=== PATIENT | male | born 1950 | race Caucasian/White ===

== ENCOUNTER 2025-01-17 15:26 | Inpatient (IN) ==
[2025-01-17] MEDS: LASIX IVP SCH (16:42)
[2025-01-17] MEDS: ALBUMIN HUMAN 25%- 100 ML 100 ML IV SCH (16:42)
[2025-01-17] MEDS: NS 1,000 ML IV 1,000 ML IV SCH (16:44)
[2025-01-17] MEDS: ASPIRIN 81 MG CHEWTAB PO SCH (16:56)
[2025-01-17] MEDS: ALDACTONE TAB 25 MG PO SCH (16:56)
[2025-01-17] MEDS: ZESTRIL TAB 5 MG PO SCH (16:56)
[2025-01-17 17:12] LABS: MEAN PLATELET VOLUME 7.9 fL (7.4-11.0); RED CELL DISTRIBUTION WIDTH 19.4 % (11.6-16.5)
[2025-01-17 17:20] LABS: CREATININE 2.33 mg/dL (0.70-1.30); eGFR NON BLACK RACES 29.0 (>60)
[2025-01-17 17:32] LABS: PLATELET MORPHOLOGY COMMENT NORMAL (NORMAL)
[2025-01-17 18:04] LABS: COR CA(FOR HYPOALB) 9.7 mg/dL (8.5-10.1); COR NA(FOR HYPERGLY) 131.0 mmol/L (136-145)
--- NOTE | 2025-01-17 18:04 | RAD ---
EXAM: CHEST, PA/LAT ADULT HISTORY: CHF; COMPARISON: September 2024 FINDINGS: Faint interstitial infiltrate seen throughout the lungs. Sternotomy changes. CABG. No pneumothorax or effusion. Mild enlargement The bones are unremarkable. IMPRESSION: 1. Slight interstitial diffuse thickening. Recommend noncontrast CT to evaluate for fibrotic changes THIS IS AN ELECTRONICALLY VERIFIED FINAL REPORT 01/17/2025 6:01 PM - Electronically signed by Svetlana Maciel MD
[2025-01-17] MEDS: LASIX ONE (19:07)
[2025-01-17 19:25] LABS: BLOOD/HEMOGLOBIN,URINE 5+ (NEGATIVE); LEUKOCYTE ESTERASE ,URINE 3+ (NEGATIVE); NITRITES,URINE NEGATIVE (NEGATIVE)
[2025-01-17 19:29] LABS: APPEARANCE,URINE CLOUDY (CLEAR)
[2025-01-17 19:44] LABS: SQUAMOUS EPITHELIAL CELL,UR NEGATIVE /HPF (NEGATIVE); YEAST,URINE MANY /HPF (NEGATIVE)
[2025-01-17 20:09] VITALS: BMI 32.7
[2025-01-17] MEDS ORDERED: K-DUR TAB 20 MEQ PO SCH (21:00)
[2025-01-17] MEDS: KAYEXALATE SUSP PO ONE (21:10)
[2025-01-17] MEDS: GLUCOPHAGE XR 24-HR PO SCH (21:10)
[2025-01-17] MEDS: ARIMIDEX PO SCH (21:10)
[2025-01-17] MEDS: ROCEPHIN VIAL 1 GRAM 1 G in NS 100 ML IV 100 ML IV SCH (21:10)
[2025-01-17] MEDS: COREG TAB 3.125 MG PO SCH (21:10)
[2025-01-17] MEDS: NovoLIN R (or HumuLIN R) SUBCUT PRN (21:16)
[2025-01-17] MEDS: SNACK - Diabetic Appropriate PO SCH (21:18)
[2025-01-18] MEDS: TYLENOL 325 MG TAB PO PRN (00:27)
[2025-01-18 04:59] LABS: MEAN PLATELET VOLUME 8.0 fL (7.4-11.0); RED CELL DISTRIBUTION WIDTH 19.5 % (11.6-16.5)
[2025-01-18 05:22] LABS: COR CA(FOR HYPOALB) 9.3 mg/dL (8.5-10.1); COR NA(FOR HYPERGLY) 130.0 mmol/L (136-145); CREATININE 2.48 mg/dL (0.70-1.30); eGFR NON BLACK RACES 27.0 (>60)
[2025-01-18] MEDS: LOVENOX INJ 30 MG SYR SC SCH (09:01)
[2025-01-18] MEDS: ALBUMIN HUMAN 25%- 100 ML 100 ML IV SCH (09:01)
[2025-01-18] MEDS: FARXIGA PO SCH (09:01)
[2025-01-18] MEDS: LASIX IVP SCH (09:39)
[2025-01-18] MEDS: DEPO-TESTOSTERONE IM SCH (15:08)
[2025-01-18] MEDS: PEPCID TAB 20 MG PO SCH (20:20)
[2025-01-19 04:58] LABS: MEAN PLATELET VOLUME 8.1 fL (7.4-11.0); RED CELL DISTRIBUTION WIDTH 19.5 % (11.6-16.5)
[2025-01-19 05:07] LABS: COR NA(FOR HYPERGLY) 128 mmol/L (136-145); CREATININE 2.44 mg/dL (0.70-1.30); eGFR NON BLACK RACES 28 (>60)
[2025-01-19] MEDS: DIFLUCAN PO SCH (11:07)
--- NOTE | 2025-01-19 14:19 | NOTE.SOAP ---
Soap Note Note for Day of Date of Exam: 01/19/25 Subjective Data Subjective Data: Patient denies any changes overnight. Staff report he is doing well. Heart rate improved overall. Still requiring O2 supplementation. Labs overall stable with elevated creatinine and low sodium. Objective Data Objective Data: Well-developed, well-nourished, elderly male in no acute distress. Sitting up in bed eating breakfast. Lungs diminished with faint crackles bilaterally. Bowel sounds are present. Heart sounds distant but sound regular. 2+ edema of bilateral lower extremities. Assessment Assessment: Acute on chronic systolic CHF exacerbation FABRIZIO Hypotension Mild pulmonary HTN UTI with sepsis (yeast in urine, WBCs, tachycardia) Urinary retention Plan Plan: Continue current. Consider transfer if needed. Grew out yeast in urine culture, starting p.o. fluconazole.
[2025-01-19] MEDS: MILK OF MAGNESIA PO PRN (16:09)
[2025-01-19] MEDS: PEPCID TAB 20 MG ONE (18:44)
[2025-01-20 05:57] LABS: MEAN PLATELET VOLUME 8.4 fL (7.4-11.0); RED CELL DISTRIBUTION WIDTH 19.7 % (11.6-16.5)
[2025-01-20 06:09] LABS: COR NA(FOR HYPERGLY) 129 mmol/L (136-145); CREATININE 2.42 mg/dL (0.70-1.30); eGFR NON BLACK RACES 28 (>60)
[2025-01-20] MEDS: COLACE CAP 100 MG PO PRN (09:53)
--- NOTE | 2025-01-20 10:20 | RAD ---
EXAM: KUB HISTORY: constipation; COMPARISON: Abdomen 12/11/2023, CT abdomen and pelvis 12/21/2023 FINDINGS: Gas is present in nondilated bowel. No bowel obstruction or pneumoperitoneum. There is not an abnormally large amount of stool in the colon. No significant abnormal calcification is present. Minimal degenerative spondylitic changes are present in the spine. Median sternotomy fixation hardware is present. IMPRESSION: 1. No significant abnormality THIS IS AN ELECTRONICALLY VERIFIED FINAL REPORT 01/20/2025 10:17 AM - Electronically signed by Juan Hendrickson MD
--- NOTE | 2025-01-20 17:00 | NOTE.SOAP ---
Soap Note Note for Day of Date of Exam: 01/20/25 Subjective Data Subjective Data: No acute events overnight. Vitals overall stable. Still feels rough but better than yesterday. Swelling still prominent of lower body. Still with hyponatremia on labs, slightly improved leukocytosis, and microcytic anemia. Objective Data Objective Data: Well-developed, well-nourished male in no acute distress. Wearing O2 via nasal cannula. Head NCAT with hearing grossly normal. Heart rate regular with no murmur appreciated. Lungs diminished with crackles but fair air movement. Belly distended with increased tympany. 2+ pitting edema bilateral lower extremities. Assessment Assessment: Acute on chronic systolic CHF exacerbation Distended abdomen, appears to be gas Microcytic anemia UTI with sepsis (present on admission. yeast in urine, WBCs, tachycardia) Plan Plan: Albumin, gentle fluids, diuresis, O2 support, iron iron panel, KUB/simethicone and cleanout..
[2025-01-20] MEDS: AFRIN NASAL SPRAY PRN (17:25)
[2025-01-20] MEDS ORDERED: RESTORIL CAP 15 MG PO PRN (17:45)
[2025-01-20] MEDS: PEPCID TAB 20 MG PO SCH (21:33)
[2025-01-20] MEDS: AMBIEN PO PRN (21:33)
[2025-01-21 05:08] LABS: MEAN PLATELET VOLUME 8.4 fL (7.4-11.0); RED CELL DISTRIBUTION WIDTH 19.1 % (11.6-16.5)
[2025-01-21 05:17] LABS: COR NA(FOR HYPERGLY) 132 mmol/L (136-145); CREATININE 2.23 mg/dL (0.70-1.30); eGFR NON BLACK RACES 31 (>60)
[2025-01-21] MEDS: FERROUS GLUCONATE PO SCH (12:00)
--- NOTE | 2025-01-21 12:32 | NOTE.SOAP ---
Soap Note Note for Day of Date of Exam: 01/21/25 Subjective Data Subjective Data: Slept better last night. Volume (-). Breathing/talking easier. Legs and abdomen less swollen. Good BM yesterday. Iron low. SCr and WBCs improved. K+ up. Objective Data Objective Data: NAD. Wearing NC. Talking better. Legs 2+ nonpitting today. Abdomen soft and non- distended. Lungs clear with good aeration. RRR. Assessment Assessment: Acute on chronic systolic CHF exacerbation Iron deficiency anemia Hypotension FABRIZIO Hyperkalemia Hyponatremia Sepsis due to fungal UTI Plan Plan: Add oral iron, continue GI clean out, continue gentle diuresis. No other changes.
[2025-01-21] MEDS: MAALOX or MYLANTA PO PRN (17:20)
[2025-01-21] MEDS: COLACE CAP 100 MG PO SCH (21:37)
[2025-01-21] MEDS: PEPCID 20 MG VIAL 20 MG in NS 50 ML IV 50 ML IV SCH (21:38)
[2025-01-22 05:24] LABS: MEAN PLATELET VOLUME 8.5 fL (7.4-11.0); RED CELL DISTRIBUTION WIDTH 19.3 % (11.6-16.5)
[2025-01-22 05:26] LABS: COR NA(FOR HYPERGLY) 131 mmol/L (136-145); CREATININE 2.13 mg/dL (0.70-1.30); eGFR NON BLACK RACES 33 (>60)
[2025-01-22 05:39] LABS: PLATELET MORPHOLOGY COMMENT NORMAL (NORMAL)
--- NOTE | 2025-01-22 08:01 | NOTE.SOAP ---
Soap Note Note for Day of Date of Exam: 01/22/25 Subjective Data Subjective Data: SCR improving. BP stable. Anemia stable. Ambulating to bathroom. No worsening dyspnea. Edema improve. Negative UOP. WBCs up. Objective Data Objective Data: Well-developed, well-nourished male in no acute distress. Wearing his nasal cannula. Speech and breathing continuously improved. Lungs clear today with good air movement. Heart regular rate and rhythm. Edema and now pitting but less tense in the legs overall. Able to move all extremities well. Belly remains soft with bowel sounds present. Assessment Assessment: Acute on chronic systolic CHF JOSE ELIAS FABRIZIO Sepsis due to fungal UTI Plan Plan: Monitor labs and vitals. Continue antifungal. Continue PO iron. Albumin and Lasix today.
[2025-01-22] MEDS: AYR NASAL DROPS PRN (09:01)
[2025-01-23 04:52] LABS: MEAN PLATELET VOLUME 8.5 fL (7.4-11.0); RED CELL DISTRIBUTION WIDTH 19.3 % (11.6-16.5)
[2025-01-23 05:04] LABS: COR NA(FOR HYPERGLY) 133 mmol/L (136-145); CREATININE 1.89 mg/dL (0.70-1.30); eGFR NON BLACK RACES 37 (>60)
--- NOTE | 2025-01-23 10:04 | NOTE.SOAP ---
Soap Note Note for Day of Date of Exam: 01/23/25 Subjective Data Subjective Data: Weight slightly up today. Slightly positive fluid balance this morning. Stable anemia. Mild elevation in WBCs that is stable. Leg edema continues to improve but scrotal edema still massive. Ambulating and breathing better overall other than the scrotal/penile discomfort. Objective Data Objective Data: Elderly male in no acute distress. Eating breakfast. Hearing intact conversation. Head NCAT. Heart regular rate and rhythm. Lungs clear with strong, unlabored speech. 2+ pitting edema of the lower extremities with out tightness. Large scrotal edema. Nichols still with output. Assessment Assessment: Acute on chronic systolic CHF exacerbation JOSE ELIAS Scrotal edema due to above FABRIZIO Plan Plan: Serum creatinine continues to improve. Continue albumin and Lasix. Try up any techniques to help with the scrotal edema. Recheck weight. Strict I's and O's. Continue Nichols due to penile/scrotal edema. Patient not yet stable to go home due to the discomfort while ambulating but would be eligible to go to [facility].
[2025-01-24 06:14] LABS: MEAN PLATELET VOLUME 8.3 fL (7.4-11.0); RED CELL DISTRIBUTION WIDTH 19.3 % (11.6-16.5)
[2025-01-24 06:51] LABS: COR NA(FOR HYPERGLY) 133 mmol/L (136-145); CREATININE 1.91 mg/dL (0.70-1.30); eGFR NON BLACK RACES 37 (>60)
[2025-01-24] MEDS: NYSTATIN POWDER TOP SCH (08:14)
[2025-01-24] MEDS: LASIX IVP SCH (08:15)
[2025-01-24] MEDS: COREG TAB 6.25 MG PO SCH (08:20)
--- NOTE | 2025-01-24 10:57 | NOTE.SOAP ---
Soap Note Note for Day of Date of Exam: 01/24/25 Subjective Data Subjective Data: Weight up yesterday and today. Scrotal edema still massive. Ambulation difficult due to the tenderness. Leg still edematous but daily improvement. Urine output still pretty good. Appetite good. Shortness of breath resolved. Objective Data Objective Data: Well-developed male in no acute distress. Hearing intact conversation. Heart regular rate and rhythm. Lungs clear bilaterally. Belly soft and nontender with the bowel sounds present. Leg still 2+ pitting edema but not tense or weeping. Scrotum still swollen. Assessment Assessment: Acute on chronic systolic CHF exacerbation , slowly resolving JOSE ELIAS, stable Scrotal edema due to above, unchanged FABRIZIO, improving Plan Plan: Increase Lasix to 40 mg 3 times daily IV for today and tomorrow. Continue current. Patient is stable for discharge other than his difficulty ambulating due to the scrotal edema. Dry weight is between 190-195 pounds. Still 20 pounds away.
[2025-01-25 05:17] LABS: MEAN PLATELET VOLUME 8.5 fL (7.4-11.0)
[2025-01-25 05:24] LABS: RED CELL DISTRIBUTION WIDTH 19.1 % (11.6-16.5)
[2025-01-25 05:37] LABS: COR NA(FOR HYPERGLY) 134 mmol/L (136-145); CREATININE 2.05 mg/dL (0.70-1.30); eGFR NON BLACK RACES 34 (>60)
[2025-01-25] MEDS ORDERED: LEVSIN/MAALOX/LIDOC VISC PO PRN (09:42)
[2025-01-25] MEDS: CITROMA PO ONE (09:53)
[2025-01-25] MEDS: DIFLUCAN PO NR (09:54)
[2025-01-25] MEDS: ZAROXOLYN PO SCH (09:54)
[2025-01-25] MEDS: PLAVIX PO SCH (09:54)
[2025-01-25] MEDS: RHINOCORT ALLERGY NASAL SPRAY ENOSTRIL SCH (09:54)
[2025-01-25] MEDS: PEPCID 20 MG VIAL 20 MG in NS 50 ML IV 50 ML IV SCH (10:03)
[2025-01-26 06:48] LABS: MEAN PLATELET VOLUME 8.3 fL (7.4-11.0); RED CELL DISTRIBUTION WIDTH 20.0 % (11.6-16.5)
[2025-01-26 06:50] LABS: COR NA(FOR HYPERGLY) 134 mmol/L (136-145); CREATININE 2.37 mg/dL (0.70-1.30); eGFR NON BLACK RACES 29 (>60)
[2025-01-26] MEDS: DIFLUCAN PO SCH (08:56)
[2025-01-26] MEDS: PROSCAR PO SCH (09:55)
[2025-01-27 06:22] LABS: MEAN PLATELET VOLUME 8.3 fL (7.4-11.0); RED CELL DISTRIBUTION WIDTH 19.8 % (11.6-16.5)
[2025-01-27 06:39] LABS: COR NA(FOR HYPERGLY) 133 mmol/L (136-145); CREATININE 2.16 mg/dL (0.70-1.30); eGFR NON BLACK RACES 32 (>60)
[2025-01-27] MEDS: ALBUMIN HUMAN 25%- 100 ML 100 ML IV SCH (09:15)
[2025-01-28 05:07] LABS: MEAN PLATELET VOLUME 8.2 fL (7.4-11.0); RED CELL DISTRIBUTION WIDTH 19.8 % (11.6-16.5)
[2025-01-28 05:13] LABS: COR NA(FOR HYPERGLY) 132 mmol/L (136-145); CREATININE 2.05 mg/dL (0.70-1.30); eGFR NON BLACK RACES 34 (>60)
--- NOTE | 2025-01-28 10:49 | PCM.PROG ---
Progress Note Progress Note for Day of Date of Exam: 01/28/25 Subjective Subjective: Patient is a 74-year-old male admitted for CHF exacerbation. This morning he is resting comfortably in bed. No acute events overnight. He did have his Nichols removed. Labs/imaging: WBC 11.8, hemoglobin 11.9, platelets 191, sodium 132, potassium 4.1, creatinine 2.05, glucose 139. Patient does have urinary output of -380 cc. Patient gradually improving. Otherwise continue with diuretics. Continue with current treatment plan and medications. Closely monitor and follow-up labs/imaging. Past Medical Family Social History Past Med/Fam/Surg Hx: No changes since H&P Allergies: Allergies No Known Drug Allergies (NKDA) Allergy (Unknown, Verified 01/17/25 18:29) Review of Systems ROS changes noted: see HPI Vital Signs and I&O's Vital Signs: Vital Signs Temperature 97.1 F Temperature 97.4 F Pulse Rate [Brachial] 94 Pulse Rate [Brachial] 87 Respiratory Rate 17 Respiratory Rate 24 Blood Pressure [Right Arm] 110/70 Blood Pressure [Right Arm] 88/54 Blood Pressure [Right Arm] 102/61 O2 Sat by Pulse Oximetry 100 O2 Sat by Pulse Oximetry 100 Intake and Output: Intake & Output 01/25/25 01/26/25 01/27/25 01/28/25 23:59 23:59 23:59 23:59 Intake Total 1111 / 1111 1270 / 1270 1717 / 1717 432 / 432 Output Total 2220 / 2260 3034 / 3134 2287 / 2367 640 / 640 Balance -1109 / -1149 -1764 / -1864 -570 / -650 -208 / -208 Physical Exam Oriented: Normal Eyes: Normal Ear: Normal Nose: Normal Respiratory: Diminished Cardiovascular: Normal : Normal Auscultation: Bowel Sounds: Normal Palpation: Normal Tenderness: Normal Skin: Normal Speech Pattern: Clear and Appropriate Laboratory and Diagnostics 01/28/25 04:30 01/28/25 04:30 Labs: 01/17/25 19:12 Urine,Catheterized Urine Culture - Final [facility] WBC 11.8 X10^3/uL (3.6-10.0) H 01/28/25 04:30 RBC 4.95 X10^6/uL (4.7-6.0) 01/28/25 04:30 Hgb 11.9 g/dL (13.5-18.0) L 01/28/25 04:30 Hct 38.0 % (42.0-54.0) L 01/28/25 04:30 MCV 76.8 fL (80.0-100.0) L 01/28/25 04:30 MCH 24.1 pg (27.0-34.0) L 01/28/25 04:30 MCHC 31.4 g/dL (33.0-35.0) L 01/28/25 04:30 RDW 19.8 % (11.6-16.5) H 01/28/25 04:30 Plt Count 191 X10^3/uL (150.0-450.0) 01/28/25 04:30 Plt Count Comment Adequate (ADEQUATE) 01/22/25 04:13 MPV 8.2 fL (7.4-11.0) 01/28/25 04:30 Neut % (Auto) 77.6 % (42.0-75.0) H 01/28/25 04:30 Lymph % (Auto) 15.1 % (21.0-51.0) L 01/28/25 04:30 [place] % (Auto) 5.3 % (0.0-13.0) 01/28/25 04:30 Eos % (Auto) 1.0 % (0.9-2.9) 01/28/25 04:30 Baso % (Auto) 1.0 % (0.2-1.0) 01/28/25 04:30 Neut # (Auto) 9.2 x10^3/uL (2.2-4.8) H 01/28/25 04:30 Lymph # (Auto) 1.8 X10^3/uL (1.3-2.9) 01/28/25 04:30 [place] # (Auto) 0.6 x10^3/uL (0.3-0.8) 01/28/25 04:30 Eos # (Auto) 0.1 x10^3/uL (0.0-0.2) 01/28/25 04:30 Baso # (Auto) 0.1 X10^3/uL (0.0-0.1) 01/28/25 04:30 Absolute Nucleated RBC 0.1 /100WBC 01/28/25 04:30 Total Counted 100 01/22/25 04:13 Neutrophils % (Manual) 77 % (39-76) H 01/22/25 04:13 Lymphocytes % (Manual) 18 % (13-43) 01/22/25 04:13 Monocytes % (Manual) 5 % (4-9) 01/22/25 04:13 Eosinophils % (Manual) 6 % (0-6) 01/17/25 16:37 Plt Morphology Comment Normal (NORMAL) 01/22/25 04:13 RBC Morphology Abnormal (NORMAL) 01/22/25 04:13 Dimorphic RBCs Slight 01/17/25 16:37 Hypochromasia Slight A 01/22/25 04:13 Poikilocytosis Slight A 01/17/25 16:37 Anisocytosis Slight A 01/22/25 04:13 Microcytosis Slight A 01/22/25 04:13 Sodium 131 mmol/L (136-145) L 01/28/25 04:30 Corrected Sodium 132 mmol/L (136-145) L 01/28/25 04:30 Potassium 4.1 mmol/L (3.5-5.1) 01/28/25 04:30 Chloride 96 mmol/L (98-107) L 01/28/25 04:30 Carbon Dioxide 23.9 mmol/L (21-32) 01/28/25 04:30 BUN 81 mg/dL (7-18) H 01/28/25 04:30 Creatinine 2.05 mg/dL (0.70-1.30) H 01/28/25 04:30 Est GFR (MDRD) Af Amer 41 (>60) L 01/28/25 04:30 Est GFR (MDRD) Non-Af 34 (>60) L 01/28/25 04:30 Glucose 139 mg/dL (65-99) H 01/28/25 04:30 POC Glucose (mg/dL) 114 mg/dL (65-99) H 01/28/25 05:04 Calcium 8.5 mg/dL (8.5-10.1) 01/28/25 04:30 Corrected Calcium TNP 01/28/25 04:30 Magnesium 2.9 mg/dL (2.0-2.9) 01/25/25 04:38 Iron 29 ug/dL (50-175) L 01/20/25 05:17 Total Bilirubin 0.50 mg/dL (0.2-1.0) 01/28/25 04:30 AST 15 Units/L (15-37) 01/28/25 04:30 ALT 39 Units/L (12-78) 01/28/25 04:30 Alkaline Phosphatase 78 Units/L (46-116) 01/28/25 04:30 Troponin I High Sens 184.8 ng/L (4.0-60.0) H* 01/18/25 04:14 Total Protein 6.6 g/dL (6.4-8.2) 01/28/25 04:30 Albumin 3.7 g/dL (3.4-5.0) 01/28/25 04:30 Globulin 2.9 g/dL (2.5-4.5) 01/28/25 04:30 Albumin/Globulin Ratio 1.3 Ratio (1.1-2.1) 01/28/25 04:30 Vitamin B12 > 2000 pg/mL (193-986) H 01/20/25 05:17 Folate 15.9 ng/mL (>8.6) 01/20/25 05:17 Specimen Type Catherized urine 01/17/25 19:12 Urine Color Yellow (YELLOW) 01/17/25 19:12 Urine Appearance Cloudy (CLEAR) 01/17/25 19:12 Urine pH 5.0 (5.0 - 8.0) 01/17/25 19:12 Ur Specific [place] 1.020 (1.000-1.030) 01/17/25 19:12 Urine Protein 2+ (NEGATIVE) 01/17/25 19:12 Urine Glucose (UA) 4+ (NEGATIVE) 01/17/25 19:12 Urine Ketones Negative (NEGATIVE) 01/17/25 19:12 Urine Blood 5+ (NEGATIVE) 01/17/25 19:12 Urine Nitrite Negative (NEGATIVE) 01/17/25 19:12 Urine Bilirubin Negative (NEGATIVE) 01/17/25 19:12 Urine Urobilinogen Normal (NORMAL) 01/17/25 19:12 Ur Leukocyte Esterase 3+ (NEGATIVE) 01/17/25 19:12 Urine RBC 10-20 /HPF (0-3) A 01/17/25 19:12 Urine WBC Tntc /HPF (0-5) A 01/17/25 19:12 Ur Squamous Epith Cells Negative /HPF (NEGATIVE) 01/17/25 19:12 Urine Bacteria 1+ /HPF (NEGATIVE) 01/17/25 19:12 Urine Yeast Many /HPF (NEGATIVE) 01/17/25 19:12 Ur Culture Indicated? Yes/culture set up 01/17/25 19:12 Infect Dis PCR Plus See scanned report 01/25/25 10:00 Plan (1) CHF exacerbation: Status: Acute Qualifiers: Heart failure type: unspecified Qualified Code(s): I50.9 - Heart failure, unspecified
[2025-01-29 04:49] LABS: MEAN PLATELET VOLUME 8.2 fL (7.4-11.0); RED CELL DISTRIBUTION WIDTH 19.8 % (11.6-16.5)
[2025-01-29 05:03] LABS: COR NA(FOR HYPERGLY) 128 mmol/L (136-145); CREATININE 2.00 mg/dL (0.70-1.30); eGFR NON BLACK RACES 35 (>60)
--- NOTE | 2025-01-29 09:31 | PCM.PROG ---
Progress Note Progress Note for Day of Date of Exam: 01/29/25 Subjective Subjective: Patient is a 74-year-old male admitted for CHF exacerbation. He was examined this morning at bedside. No acute events overnight. He did have his Nichols removed and is urinating without problem. Labs/imaging: WBC 9.5, hemoglobin 11.8, platelets 185, sodium 128, potassium 4.0, creatinine 2.00, glucose 143. Patient gradually improving. Otherwise continue with diuretics. He did not eat much yesterday, encouraged him to eat well today as we will monitor his sodium level. Continue with current treatment plan and medications. Closely monitor and follow-up labs/imaging. Past Medical Family Social History Past Med/Fam/Surg Hx: No changes since H&P Allergies: Allergies No Known Drug Allergies (NKDA) Allergy (Unknown, Verified 01/17/25 18:29) Review of Systems ROS changes noted: see HPI Vital Signs and I&O's Vital Signs: Vital Signs Temperature 97.4 F Temperature 98.0 F Pulse Rate [Brachial] 94 Pulse Rate [Brachial] 67 Respiratory Rate 18 Respiratory Rate 20 Blood Pressure [Right Arm] 95/85 Blood Pressure [Right Arm] 106/73 O2 Sat by Pulse Oximetry 97 O2 Sat by Pulse Oximetry 95 Intake and Output: Intake & Output 01/26/25 01/27/25 01/28/25 01/29/25 23:59 23:59 23:59 22:59 Intake Total 1270 / 1270 1717 / 1717 2311 / 2311 721 / 721 Output Total 3034 / 3134 2287 / 2367 640 / 640 1200 / 1200 Balance -1764 / -1864 -570 / -650 1671 / 1671 -479 / -479 Physical Exam Oriented: Normal Eyes: Normal Ear: Normal Nose: Normal Respiratory: Diminished Cardiovascular: Normal : Normal Auscultation: Bowel Sounds: Normal Tenderness: Normal Skin: Normal Speech Pattern: Clear and Appropriate Laboratory and Diagnostics 01/29/25 04:39 01/29/25 04:39 Labs: 01/17/25 19:12 Urine,Catheterized Urine Culture - Final [facility] WBC 9.5 X10^3/uL (3.6-10.0) 01/29/25 04:39 RBC 4.81 X10^6/uL (4.7-6.0) 01/29/25 04:39 Hgb 11.8 g/dL (13.5-18.0) L 01/29/25 04:39 Hct 36.9 % (42.0-54.0) L 01/29/25 04:39 MCV 76.8 fL (80.0-100.0) L 01/29/25 04:39 MCH 24.6 pg (27.0-34.0) L 01/29/25 04:39 MCHC 32.1 g/dL (33.0-35.0) L 01/29/25 04:39 RDW 19.8 % (11.6-16.5) H 01/29/25 04:39 Plt Count 185 X10^3/uL (150.0-450.0) 01/29/25 04:39 Plt Count Comment Adequate (ADEQUATE) 01/22/25 04:13 MPV 8.2 fL (7.4-11.0) 01/29/25 04:39 Neut % (Auto) 73.8 % (42.0-75.0) 01/29/25 04:39 Lymph % (Auto) 17.1 % (21.0-51.0) L 01/29/25 04:39 [place] % (Auto) 6.4 % (0.0-13.0) 01/29/25 04:39 Eos % (Auto) 1.9 % (0.9-2.9) 01/29/25 04:39 Baso % (Auto) 0.8 % (0.2-1.0) 01/29/25 04:39 Neut # (Auto) 7.0 x10^3/uL (2.2-4.8) H 01/29/25 04:39 Lymph # (Auto) 1.6 X10^3/uL (1.3-2.9) 01/29/25 04:39 [place] # (Auto) 0.6 x10^3/uL (0.3-0.8) 01/29/25 04:39 Eos # (Auto) 0.2 x10^3/uL (0.0-0.2) 01/29/25 04:39 Baso # (Auto) 0.1 X10^3/uL (0.0-0.1) 01/29/25 04:39 Absolute Nucleated RBC 0.1 /100WBC 01/29/25 04:39 Total Counted 100 01/22/25 04:13 Neutrophils % (Manual) 77 % (39-76) H 01/22/25 04:13 Lymphocytes % (Manual) 18 % (13-43) 01/22/25 04:13 Monocytes % (Manual) 5 % (4-9) 01/22/25 04:13 Eosinophils % (Manual) 6 % (0-6) 01/17/25 16:37 Plt Morphology Comment Normal (NORMAL) 01/22/25 04:13 RBC Morphology Abnormal (NORMAL) 01/22/25 04:13 Dimorphic RBCs Slight 01/17/25 16:37 Hypochromasia Slight A 01/22/25 04:13 Poikilocytosis Slight A 01/17/25 16:37 Anisocytosis Slight A 01/22/25 04:13 Microcytosis Slight A 01/22/25 04:13 Sodium 127 mmol/L (136-145) L 01/29/25 04:39 Corrected Sodium 128 mmol/L (136-145) L 01/29/25 04:39 Potassium 4.0 mmol/L (3.5-5.1) 01/29/25 04:39 Chloride 93 mmol/L (98-107) L 01/29/25 04:39 Carbon Dioxide 26.7 mmol/L (21-32) 01/29/25 04:39 BUN 77 mg/dL (7-18) H 01/29/25 04:39 Creatinine 2.00 mg/dL (0.70-1.30) H 01/29/25 04:39 Est GFR (MDRD) Af Amer 42 (>60) L 01/29/25 04:39 Est GFR (MDRD) Non-Af 35 (>60) L 01/29/25 04:39 Glucose 143 mg/dL (65-99) H 01/29/25 04:39 POC Glucose (mg/dL) 137 mg/dL (65-99) H 01/29/25 05:00 Calcium 8.4 mg/dL (8.5-10.1) L 01/29/25 04:39 Corrected Calcium TNP 01/29/25 04:39 Magnesium 2.9 mg/dL (2.0-2.9) 01/25/25 04:38 Iron 29 ug/dL (50-175) L 01/20/25 05:17 Total Bilirubin 0.50 mg/dL (0.2-1.0) 01/29/25 04:39 AST 18 Units/L (15-37) 01/29/25 04:39 ALT 36 Units/L (12-78) 01/29/25 04:39 Alkaline Phosphatase 73 Units/L (46-116) 01/29/25 04:39 Troponin I High Sens 184.8 ng/L (4.0-60.0) H* 01/18/25 04:14 Total Protein 6.7 g/dL (6.4-8.2) 01/29/25 04:39 Albumin 3.8 g/dL (3.4-5.0) 01/29/25 04:39 Globulin 2.9 g/dL (2.5-4.5) 01/29/25 04:39 Albumin/Globulin Ratio 1.3 Ratio (1.1-2.1) 01/29/25 04:39 Vitamin B12 > 2000 pg/mL (193-986) H 01/20/25 05:17 Folate 15.9 ng/mL (>8.6) 01/20/25 05:17 Specimen Type Catherized urine 01/17/25 19:12 Urine Color Yellow (YELLOW) 01/17/25 19:12 Urine Appearance Cloudy (CLEAR) 01/17/25 19:12 Urine pH 5.0 (5.0 - 8.0) 01/17/25 19:12 Ur Specific [place] 1.020 (1.000-1.030) 01/17/25 19:12 Urine Protein 2+ (NEGATIVE) 01/17/25 19:12 Urine Glucose (UA) 4+ (NEGATIVE) 01/17/25 19:12 Urine Ketones Negative (NEGATIVE) 01/17/25 19:12 Urine Blood 5+ (NEGATIVE) 01/17/25 19:12 Urine Nitrite Negative (NEGATIVE) 01/17/25 19:12 Urine Bilirubin Negative (NEGATIVE) 01/17/25 19:12 Urine Urobilinogen Normal (NORMAL) 01/17/25 19:12 Ur Leukocyte Esterase 3+ (NEGATIVE) 01/17/25 19:12 Urine RBC 10-20 /HPF (0-3) A 01/17/25 19:12 Urine WBC Tntc /HPF (0-5) A 01/17/25 19:12 Ur Squamous Epith Cells Negative /HPF (NEGATIVE) 01/17/25 19:12 Urine Bacteria 1+ /HPF (NEGATIVE) 01/17/25 19:12 Urine Yeast Many /HPF (NEGATIVE) 01/17/25 19:12 Ur Culture Indicated? Yes/culture set up 01/17/25 19:12 Infect Dis PCR Plus See scanned report 01/25/25 10:00 Plan (1) CHF exacerbation: Status: Acute Qualifiers: Heart failure type: unspecified Qualified Code(s): I50.9 - Heart failure, unspecified
[2025-01-30 04:59] LABS: MEAN PLATELET VOLUME 8.4 fL (7.4-11.0); RED CELL DISTRIBUTION WIDTH 19.6 % (11.6-16.5)
[2025-01-30 05:04] LABS: CREATININE 2.10 mg/dL (0.70-1.30); eGFR NON BLACK RACES 33 (>60)
[2025-01-30] MEDS: PEPCID 20 MG VIAL 20 MG in NS 50 ML IV 50 ML IV SCH (08:07)
[2025-01-30] MEDS: FLOMAX PO SCH (09:45)
[2025-01-30] MEDS: BUMEX INJ 1 MG VIAL IVP SCH (20:28)
[2025-01-31 04:59] LABS: MEAN PLATELET VOLUME 8.2 fL (7.4-11.0); RED CELL DISTRIBUTION WIDTH 19.9 % (11.6-16.5)
[2025-01-31 05:08] LABS: COR NA(FOR HYPERGLY) 136 mmol/L (136-145); CREATININE 2.23 mg/dL (0.70-1.30); eGFR NON BLACK RACES 31 (>60)
[2025-01-31] MEDS: VORICONAZOLE 400 MG in NS 100 ML IV 100 ML IV SCH ×2 (09:11→10:15)
[2025-01-31] MEDS: VORICONAZOLE 200 MG in NS 50 ML IV 50 ML IV SCH (10:00)
[2025-01-31] MEDS: BUMEX INJ 1 MG VIAL IVP SCH (10:11)
[2025-01-31 19:46] VITALS: RESP 17
[2025-02-01 04:57] LABS: MEAN PLATELET VOLUME 7.8 fL (7.4-11.0); RED CELL DISTRIBUTION WIDTH 19.9 % (11.6-16.5)
[2025-02-01 05:07] LABS: COR NA(FOR HYPERGLY) 136 mmol/L (136-145); CREATININE 2.09 mg/dL (0.70-1.30); eGFR NON BLACK RACES 33 (>60)
[2025-02-01] MEDS ORDERED: CONSULT PHARMACY - POTASSIUM & MAGNESIUM XX SCH (08:00)
[2025-02-01] MEDS: K-DUR TAB 20 MEQ PO SCH (09:32)
[2025-02-01 09:55] VITALS: BP 91/51; PULSE 90; TEMP 97.3; O2SAT 98
== END 2025-02-01 09:59 | disposition swing bed (61) | DRG 292 ==
LOC: ICU → OBSVTOIN 15:36 → MED/SURG 01-19 15:57
PROVIDERS: ADMIT Obstetrics & Gynecology Obstetrics; ATTEND Obstetrics & Gynecology Obstetrics
DX: I95.89 Other hypotension; N17.8 Other acute kidney failure; D50.8 Other iron deficiency anemias; N40.1 Benign prostatic hyperplasia with lower urinary tract symptoms; I50.23 Acute on chronic systolic (congestive) heart failure; Z59.89 Other problems related to housing and economic circumstances; N50.89 Other specified disorders of the male genital organs; R79.89 Other specified abnormal findings of blood chemistry; R91.8 Other nonspecific abnormal finding of lung field; K59.09 Other constipation; B37.89 Other sites of candidiasis; R53.1 Weakness; R94.4 Abnormal results of kidney function studies; R06.02 Shortness of breath; E87.5 Hyperkalemia; Z66 Do not resuscitate; R60.0 Localized edema; E87.1 Hypo-osmolality and hyponatremia; N39.0 Urinary tract infection, site not specified; D72.828 Other elevated white blood cell count; E11.65 Type 2 diabetes mellitus with hyperglycemia; R26.89 Other abnormalities of gait and mobility; L89.152 Pressure ulcer of sacral region, stage 2

== ENCOUNTER 2025-02-01 10:00 | Inpatient (IN) ==
[2025-02-01] MEDS ORDERED: LEVSIN/MAALOX/LIDOC VISC PO PRN (10:45)
[2025-02-01] MEDS ORDERED: MAALOX or MYLANTA PO PRN (10:45)
[2025-02-01] MEDS ORDERED: AYR NASAL DROPS PRN (10:45)
[2025-02-01] MEDS ORDERED: AMBIEN PO PRN (10:45)
--- NOTE | 2025-02-01 13:27 | PT/OTEVAL ---
PT/OT OBJECTIVES - HISTORY Prescription: PT Consult Diagnosis: Deconditioning due to CHF Precautions: Fall Risk PMH: HTN, Arthritis, DM, CVA, CAD, Bypass Surgery (~1.5 months ago), Foot Sx Prior Level of Function: Independent Other: Per patient report- he resides alone with 2 dogs in a 5th wheel camper with 3 steps to enter with LHR (reports steps are "denise and broken down" and that he was going to replace them but was hospitalized). PLOF: Independent within home and community without a device but does report having a FWW he recently weaned off of after open heart surgery. Pt reports a neighbor is currently helping take care of his dogs but no family support. History of Present Illness: Mr. Redmond is a 74 year old male who was a direct admit to [facility] on 01/17/2025 due to CHF exacerbation and hyperkalemia with severe swelling. Pt with recent history of bypass surgery as well. Pt was treated medically and due to complicated medical status was noted with a significant decline in strength and mobility and inability to safely return home. Pt was transitioned to swing bed program for rehab on 02/01/2025. - COGNITION Mental Status: Alert, Oriented, Name, Date, Place, Purpose Communication Status: Verbal Ability to Follow Directions: 2 Step Memory Loss: None - PAIN Scrotal Area Pain Scale: Moderate Comments: With movement. No pain at rest. - BED MOBILITY Rolling: Minimal Scooting: Maximum, x2 - TRANSFERS Supine to Sit: Moderate, Maximum Sit to Stand: Maximum Sit or Stand Pivot: Maximum Safety (requires cues for:): Hand Placement Precaution - BALANCE Static Sitting: Good Standing: Fair Balance Comment: Fair- Dynamic Sitting: Fair Standing: Poor Balance Comment: Poor+ - NEUROMOTOR/SENSATION Alexis. Lower Ext Sensation: WFL Coordination: WFL Proprioception: WFL - ROM Bilateral LE ROM: WFL Muscle Tone: WFL Comment: BLE swelling noted - STRENGTH Bilateral LE Strength Number: 3 - GAIT Pt. ambulates how many feet?: 20 Amount of Assistance Required: Minimal Type of Assistive Device: Rolling Walker - TREATMENT Date: 02/01/25 Time: 11:00 Treatment Type: Evaluation Treatment Provided: Gait, Therapeutic Activities - TOTAL TREATMENT TIME Total Time: 60 - POST ASSESSMENT Post Assessment Comment: Pt was found supine in bed in room and agreeable to participation in PT services. Pt reports that he is still in pain due to swelling with movement but is starting to feel some better. Pt able to roll in bed with min assist. Pt mod assist to transition from sidelying to sitting EOB. Pt mod assist to position at EOB for comfort. Pt required max assist for sit to stand transfers from EOB requiring wide TALON due to swelling. Pt with standing tolerance of 4 minutes this date. Pt performed gait training in room with FWW and mod assist for 20ft with 1 standing rest break before fatigue and requiring therapeutic rest break. Pt on O2 throughout with focus on deep breathing techiques. Pt requesting to return to bed following session stating that chair is just too uncomfortable due to his swelling. Pt assisted back to supine position with max assist and required max assist x 2 to scoot up in bed for positioning. Pt positioned for comfort. Discussion with pt re: PT POC and goals with pt reporting wanting to get his independence back to return home safely. Pt would benefit from continued PT services to address remaining deficits and facilitate highest level of function and safe discharge planning. - EXIT DISPOSITION Exit Position: BED Call light in reach: Yes Bed Alarm On: YES PT/OT ASSESSMENT - PT Problem List: Decreased Bed Mobility, Decreased Transfers, Decreased Gait, Decreased Balance, Decreased LE Strength - PT GOALS Short Term Goals Days: 10 Mobility: Pt will perform bed mobility tasks with min assist Transfers: Pt will perform functional transfers with min assist Gait: Pt will ambulate 75ft with FWW with touch assist Balance: Pt will increase static standing balance to fair+/good- Hospital Superintendent Goals Days: 20 Mobility: Pt will perform bed mobility tasks with mod I Transfers: Pt will perform functional transfers with mod I Gait: Pt will ambulate 150ft with LRAD and mod I Balance: Pt will increase static standing balance to good ROM/Strength: Pt will increase BLE strength to 5/5 Others: Pt will ascend/descend 3 stairs with LHR and mo dI - PATIENT GOALS Patient/Family Goals: "I want to get my strength back and go home" Goals Discussed with Patient/Family: Yes Rehabilitation Potential: Good to meet stated goals Justification for Potential: Facilitate highest level of function and safe discharge planning - PLAN Suggested Treatment Plan: Bed Mobility Training, Therapeutic Activity, Gait Training, Neuro Re-education, Therapeutic Ex with HEP, Patient Education, Family Education - FREQUENCY AND DURATION PT: 5x per week x 20 days Expected Continuation of Care at Discharge: Home Health Anticipated Equipment Needs: TBD pending progress with therapy
[2025-02-01] MEDS: DEPO-TESTOSTERONE IM SCH (13:35)
[2025-02-01] MEDS: NS 1,000 ML IV 1,000 ML IV SCH (17:16)
[2025-02-01 18:43] VITALS: BMI 36.3
[2025-02-01] MEDS: ROCEPHIN VIAL 1 GRAM 1 G in NS 100 ML IV 100 ML IV SCH (21:52)
[2025-02-01] MEDS: NYSTATIN POWDER TOP SCH (21:53)
[2025-02-01] MEDS: K-DUR TAB 20 MEQ PO SCH (21:54)
[2025-02-01] MEDS: ARIMIDEX PO SCH (21:54)
[2025-02-01] MEDS: COREG TAB 6.25 MG PO SCH (21:54)
[2025-02-01] MEDS: BUMEX INJ 1 MG VIAL IVP SCH (21:54)
[2025-02-01] MEDS: VORICONAZOLE 200 MG in NS 50 ML IV 50 ML IV SCH (21:55)
[2025-02-01] MEDS: SNACK - Diabetic Appropriate PO SCH (22:03)
[2025-02-01] MEDS: MILK OF MAGNESIA PO PRN (22:07)
[2025-02-01] MEDS: COLACE CAP 100 MG PO SCH (22:07)
[2025-02-01] MEDS: TYLENOL 325 MG TAB PO PRN (23:34)
[2025-02-02] MEDS: LOVENOX INJ 30 MG SYR SC SCH (09:00)
[2025-02-02] MEDS: PEPCID 20 MG VIAL 20 MG in NS 50 ML IV 50 ML IV SCH (09:00)
[2025-02-02] MEDS: ZAROXOLYN PO SCH (09:02)
[2025-02-02] MEDS: FARXIGA PO SCH (09:02)
[2025-02-02] MEDS: ASPIRIN 81 MG CHEWTAB PO SCH (09:03)
[2025-02-02] MEDS: RHINOCORT ALLERGY NASAL SPRAY ENOSTRIL SCH (09:03)
[2025-02-02] MEDS: PLAVIX PO SCH (09:03)
[2025-02-02] MEDS: PROSCAR PO SCH (09:03)
[2025-02-02] MEDS: FERROUS GLUCONATE PO SCH (09:03)
[2025-02-02] MEDS: ZESTRIL TAB 5 MG PO SCH (09:04)
[2025-02-02] MEDS: ALBUMIN HUMAN 25%- 100 ML 100 ML IV SCH (11:47)
[2025-02-03 05:48] LABS: MEAN PLATELET VOLUME 8.0 fL (7.4-11.0); RED CELL DISTRIBUTION WIDTH 20.1 % (11.6-16.5)
[2025-02-03 06:01] LABS: COR NA(FOR HYPERGLY) 137 mmol/L (136-145); CREATININE 2.35 mg/dL (0.70-1.30); eGFR NON BLACK RACES 29 (>60)
[2025-02-03 06:45] LABS: PLATELET MORPHOLOGY COMMENT NORMAL (NORMAL)
[2025-02-03] MEDS ORDERED: CONSULT PHARMACY - POTASSIUM & MAGNESIUM XX SCH (07:00)
[2025-02-03] MEDS: K-DUR TAB 20 MEQ PO SCH (09:12)
[2025-02-03] MEDS: BUMEX INJ 1 MG VIAL IVP SCH (11:27)
--- NOTE | 2025-02-03 11:50 | PT/OTEVAL ---
PT/OT OBJECTIVES - HISTORY Prescription: OT Consult Diagnosis: Deconditioning s/p CHF Precautions: Fall Risk, Increased swelling PMH: HTN, Arthritis, DM, CVA, CAD, Bypass Surgery (~1.5 months ago), Foot Sx Prior Level of Function: Independent Other: Per patient report- Pt lives alone with his 2 dogs in a camper with 3 steps to enter with HR going up in the L (reports steps are "denise and broken down" and that he was going to replace them but was hospitalized). Pt was (I) with ADLs and IADLs. DME includes RW. Pt reports a neighbor is currently helping take care of his dogs but no family support. History of Present Illness: Pt is a 74 year old male who was a direct admit to [facility] due to CHF exacerbation and hyperkalemia with severe swelling. Pt with recent history of bypass surgery as well. Pt was treated medically and due to complicated medical status was noted with a significant decline in strength and mobility and inability to safely return home. Pt was transitioned to swing bed program for rehab. - COGNITION Mental Status: Alert, Oriented, Name Communication Status: Verbal Ability to Follow Directions: 2 Step Memory Loss: None - PAIN Scrotal Area Pain Scale: Moderate Comments: With movement. No pain at rest. - BED MOBILITY Rolling: Minimal Scooting: Minimal, x2 - TRANSFERS Supine to Sit: Moderate, Maximum Sit to Stand: Moderate, Maximum Sit to Stand Comment: Depending on surface Sit or Stand Pivot: Moderate Sit or Stand Pivot Comment: Slow moving due to swelling Toileting: Moderate Safety (requires cues for:): Hand Placement Precaution - ADL'S Upper Body ADL: Minimum Lower Body ADL: Maximum Toileting: Moderate Bathing: Moderate Bathing Comment: Max LB, min UB - BALANCE Static Sitting: Good Standing: Fair Balance Comment: Fair- Dynamic Sitting: Fair Standing: Poor Balance Comment: Poor+ - NEUROMOTOR/SENSATION Alexis. Lower Ext Sensation: WFL Coordination: WFL Proprioception: WFL Alexis. Upper Ext Sensation: WFL Coordination: WFL - STRENGTH Bilateral LE Strength Number: 3 Bilateral UE Strength Number: 4 - GAIT Pt. ambulates how many feet?: 10 Amount of assistance required: Minimal Type of Assistive Device: Rolling Walker - TREATMENT Date: 11/07/25 Time: 10:00 Treatment Type: Evaluation Treatment Provided: Other - TOTAL TREATMENT TIME Total Time: 60 - POST ASSESSMENT Post Assessment Comment: Pt was seen for skilled OT to assess CLOF. Pt was agreeable to participate with skilled OT and able to provide PLOF and hx. Pt required mod/max A for STS. functionally AMB with RW and mod A, moves slowly. Pt toileted with mod A. Showered this date with max A for LB and min A for UB. Pt given extended time due to Fatigue. Pt stood and completed UB dressing with min A. Max A for LB dressing. Fucntionally AMB in room with Rw and mod. Pt requried max A for getting into the bed. Repositioning with max A x2. Pt had all needs met and call light within reach. Pt demonstrates deficits with ADLs and ADL functional mobility. Pt would benefit from skilled OT services to address ADL deficits to facilitate highest level of ADL function needed for safe d/c planning. - EXIT DISPOSITION Exit Position: BED Call light in reach: Yes PT/OT ASSESSMENT - OT Problem List: Decreased Mobility ADL's, Decreased Safety Aware, Decreased Dressing, Decreased Bathing, Decreased UE Strength, Other - PT GOALS Short Term Goals Days: 10 Mobility: Pt will perform bed mobility tasks with min assist Transfers: Pt will perform functional transfers with min assist Gait: Pt will ambulate 75ft with FWW with touch assist Balance: Pt will increase static standing balance to fair+/good- Long-Term Goals Days: 20 Mobility: Pt will perform bed mobility tasks with mod I Transfers: Pt will perform functional transfers with mod I Gait: Pt will ambulate 150ft with LRAD and mod I Balance: Pt will increase static standing balance to good ROM/Strength: Pt will increase BLE strength to 5/5 Others: Pt will ascend/descend 3 stairs with LHR and mo dI - OT GOALS Long-Term Goals Days: 20 Mobility for ADL's: Pt to improve functional ADL transfer with set up A and LRAD Dressing: Pt to improve LB dressing to supv A Bathing: Pt to improve overall bathing to set up A Upper Ext. Strength/Use: Pt to improve MMT in BUE to 5/5 Other: Pt to improve FAT to G Short Term Goals Days: 10 Mobility for ADL's: Pt to improve functional ADL transfer with supv A and LRAD Dressing: Pt to improve UB dressing to supv A Bathing: Pt to improve overall bathing to supv A Upper Ext. Strength/Use: Pt to improve MMT in BUE by 1 grade Other: Pt to improve FAT to F - PATIENT GOALS Patient/Family Goals: Get rid of this swelling Rehabilitation Potential: Good to meet stated goals. Justification for Potential: To facilitate highest level of ADL function needed for safe d/c planning. Weakness and Barriers: Pain - PLAN Suggested Treatment Plan: Therapeutic Activity, Self Care Training, Neuro Re- education, Therapeutic Ex with HEP, Patient Education - FREQUENCY AND DURATION OT: 5x a week x hospital stay Expected Continuation of Care at Discharge: Home Health
[2025-02-03] MEDS: NovoLIN R (or HumuLIN R) SUBCUT PRN (17:25)
[2025-02-04] MEDS: COLACE CAP 100 MG PO SCH (21:17)
[2025-02-04] MEDS: MIRALAX POWDER (1 DOSE 17 G) PO SCH (21:57)
[2025-02-05] MEDS: BUMEX INJ 1 MG VIAL IVP SCH (04:38)
[2025-02-05 05:42] LABS: MEAN PLATELET VOLUME 8.1 fL (7.4-11.0); RED CELL DISTRIBUTION WIDTH 19.9 % (11.6-16.5)
[2025-02-05 05:56] LABS: COR NA(FOR HYPERGLY) 139 mmol/L (136-145); CREATININE 2.85 mg/dL (0.70-1.30); eGFR NON BLACK RACES 23 (>60)
[2025-02-05] MEDS ORDERED: CONSULT PHARMACY - POTASSIUM & MAGNESIUM XX SCH (07:00)
[2025-02-05] MEDS: K-DUR TAB 20 MEQ PO SCH (09:37)
[2025-02-05] MEDS: RESTORIL CAP 15 MG PO PRN (21:09)
[2025-02-06 05:05] LABS: MEAN PLATELET VOLUME 8.7 fL (7.4-11.0); RED CELL DISTRIBUTION WIDTH 19.8 % (11.6-16.5)
[2025-02-06 05:20] LABS: COR NA(FOR HYPERGLY) 141 mmol/L (136-145); CREATININE 2.68 mg/dL (0.70-1.30); eGFR NON BLACK RACES 25 (>60)
[2025-02-06] MEDS: CONSULT PHARMACY - POTASSIUM & MAGNESIUM XX SCH (05:48)
[2025-02-06] MEDS: K-DUR TAB 20 MEQ PO SCH (08:28)
[2025-02-06] MEDS: BUMEX TAB 1 MG PO SCH (08:35)
[2025-02-06] MEDS ORDERED: NS + KCL 40 MEQ/L 1,000 ML IV SCH (13:00)
[2025-02-06] MEDS: FLOMAX PO SCH (20:35)
[2025-02-07 07:55] VITALS: BP 94/60; PULSE 90; TEMP 97.5; O2SAT 100
[2025-02-07 08:05] LABS: MEAN PLATELET VOLUME 8.8 fL (7.4-11.0); RED CELL DISTRIBUTION WIDTH 20.0 % (11.6-16.5)
[2025-02-07 08:13] LABS: COR NA(FOR HYPERGLY) 138 mmol/L (136-145); CREATININE 2.75 mg/dL (0.70-1.30); eGFR NON BLACK RACES 24 (>60)
[2025-02-07 08:43] VITALS: RESP 18
[2025-02-07] MEDS ORDERED: CONSULT PHARMACY - POTASSIUM & MAGNESIUM XX SCH (10:00)
[2025-02-07] MEDS: KLOR-CON 10 MEQ TAB PO NR (10:59)
[2025-02-08] MEDS ORDERED: FARXIGA PO SCH (09:00)
== END 2025-02-07 12:20 | disposition home or self-care (01) | DRG 292 ==
LOC: MED/SURG 10:00
PROVIDERS: ADMIT Obstetrics & Gynecology Obstetrics; ATTEND Obstetrics & Gynecology Obstetrics
DX: D50.8 Other iron deficiency anemias; E26.89 Other hyperaldosteronism; L89.152 Pressure ulcer of sacral region, stage 2; R42 Dizziness and giddiness; N40.1 Benign prostatic hyperplasia with lower urinary tract symptoms; R91.8 Other nonspecific abnormal finding of lung field; B37.89 Other sites of candidiasis; E11.65 Type 2 diabetes mellitus with hyperglycemia; R53.1 Weakness; N39.0 Urinary tract infection, site not specified; I95.89 Other hypotension; I50.23 Acute on chronic systolic (congestive) heart failure; N50.89 Other specified disorders of the male genital organs; Z51.89 Encounter for other specified aftercare; R53.81 Other malaise